=== PATIENT | male | born 1985 | race Caucasian/White ===

== ENCOUNTER 2017-03-18 03:44 | Emergency (ER) | payer SELFPAY ==
[2017-03-18] MEDS ORDERED: Ondansetron INJ* 2 MG/ML VIAL IV ONE (04:26)
[2017-03-18] MEDS ORDERED: HYDROmorphone* 1 MG/ML 1 ML SYR IV ONE (04:26)
[2017-03-18] MEDS ORDERED: NS 0.9% 1000 ML* 1,000 ML IV ONE (04:26)
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
[2017-03-18 04:56] VITALS: BP 125/78
[2017-03-18 04:59] LABS: Urine Bacteria 1+ (Absent); Urine Bilirubin Negative (Negative); Urine Glucose Negative (Negative); Urine Nitrite Negative (Negative)
== END 2017-03-18 04:57 | disposition short-term general hospital (02) ==
LOC: ED 03:44
DX: S09.90XA Unspecified injury of head, initial encounter (principal); S19.9XXA Unspecified injury of neck, initial encounter; S29.9XXA Unspecified injury of thorax, initial encounter; V29.9XXA Motorcycle rider (driver) (passenger) injured in unspecified traffic accident, initial encounter; Y92.9 Unspecified place or not applicable; F90.9 Attention-deficit hyperactivity disorder, unspecified type; Z88.2 Allergy status to sulfonamides; F17.210 Nicotine dependence, cigarettes, uncomplicated
CPT/HCPCS: 81003; 81015; 87086; 93005; 96360; 96374; 96375; 99285; J1170; J2405

== ENCOUNTER 2017-06-25 17:11 | Emergency (ER) | payer OTHER ==
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
--- NOTE | 2017-06-25 19:42 | RAD ---
INDICATION: Left shoulder injury COMPARISON: None TECHNIQUE: Routine frontal, Y and axial views were obtained. FINDINGS: The bony structures, joint spaces, and soft tissues are normal for age. IMPRESSION: NEGATIVE EXAMINATION.
[2017-06-25 20:44] VITALS: BP 121/73
== END 2017-06-25 20:42 | disposition home or self-care (01) ==
LOC: ED 17:11
DX: S49.92XA Unspecified injury of left shoulder and upper arm, initial encounter (principal); M25.512 Pain in left shoulder; V19.9XXA Pedal cyclist (driver) (passenger) injured in unspecified traffic accident, initial encounter; Y93.55 Activity, bike riding; Y92.9 Unspecified place or not applicable; Z72.0 Tobacco use
CPT/HCPCS: 99283

== ENCOUNTER 2018-03-02 21:58 | Emergency (ER) | payer OTHER ==
[2018-03-02] MEDS ORDERED: HYDROcodone/ACETAMIN 5-325 MG* 1 TAB PO ONE (22:48)
[2018-03-02] MEDS ORDERED: Acetaminophen TAB* 325 MG PO ONE (22:49)
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
[2018-03-03 01:19] VITALS: BP 121/78
--- NOTE | 2018-03-03 08:34 | RAD ---
Indication: LEFT foot and ankle pain without significant preceding injury. Comparison: No relevant prior exams available on the [facility] PACS for comparison. Technique: AP, mortise, and lateral views LEFT ankle. REPORT AND IMPRESSION: #. Moderate soft tissue swelling over the lateral malleolus. Chronic appearing accessory ossicle or old avulsion fragment inferior to the lateral malleolus. No acute fracture evident. Congruent ankle mortise. R0
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
--- NOTE | 2018-03-03 08:38 | RAD ---
Indication: LEFT foot and ankle pain without definitive preceding traumatic injury. Comparison: Ankle exam of the same date. Technique: AP and lateral views LEFT lower leg. REPORT AND IMPRESSION: #. Soft tissue swelling over the lateral malleolus. Negative for fracture or articular malalignment. R0
== END 2018-03-03 01:17 | disposition home or self-care (01) ==
LOC: ED 21:58
DX: S93.402A Sprain of unspecified ligament of left ankle, initial encounter (principal); V19.3XXA Pedal cyclist (driver) (passenger) injured in unspecified nontraffic accident, initial encounter; Y93.55 Activity, bike riding; Y92.9 Unspecified place or not applicable; Z88.2 Allergy status to sulfonamides; Z82.49 Family history of ischemic heart disease and other diseases of the circulatory system; F17.210 Nicotine dependence, cigarettes, uncomplicated
CPT/HCPCS: 36415; 80320; 99282; A9270-GY; G0480

== ENCOUNTER 2018-03-21 17:59 | Emergency (ER) | payer OTHER ==
--- NOTE | 2018-03-21 21:07 | ED ---
Laceration/Wound HPI - HPI Summary HPI Summary: 32 male presents ER with complaints of laceration to left first digit that he sustained just prior to arrival when attempting to cut down a tree branch. States he also knicked his thumb Patient states he was using a kitchen knife to cut down a branch when it slipped and fell and caught his finger. Bleeding is well-controlled. States tetanus was updated this past year. Denies any other injuries. - History of Current Complaint Stated Complaint: LT CUT FINGER AND THUMB Time Seen by Provider: 03/21/18 19:09 Hx Obtained From: Patient Mechanism of Injury: Sharp/Blunt Trauma - Kitchen knife Onset/Duration: Sudden Onset, Lasting Hours Aggravating: Movement Alleviating: Compression Timing: Constant Onset Severity: Moderate Current Severity: Moderate Pain Intensity: 7 Pain Scale Used: 0-10 Numeric Associated Signs & Symptoms: Negative Related Hx: Dominant Hand (Right) - Allergy/Home Medications Allergies/Adverse Reactions: Allergies Allergy/AdvReac Type Severity Reaction Status Date / Time MS Sulfa Drugs [Sulfa Drugs] Allergy Unknown Unknown Verified 03/21/18 18:31 Reaction Details PMH/Surg Hx/FS Hx/Imm Hx Endocrine/Hematology History: Denies: Hx Anticoagulant Therapy, Hx Blood Disorders Sensory History: Reports: Hx Contacts or Glasses Opthamlomology History: Reports: Hx Contacts or Glasses Psychiatric History: Reports: Hx Attention Deficit Hyperactivity Disorder Denies: Hx of Violent Episodes Against Others - Surgical History Surgery Procedure, Year, and Place: Right sided lymphectomy in the neck after a "staph" infection - Immunization History Date of Tetanus Vaccine: April 2017 Date of Influenza Vaccine: none Immunizations Up to Date: Yes Infectious Disease History: No Infectious Disease History: Denies: Hx Clostridium Difficile, Hx Hepatitis, Hx Human Immunodeficiency Virus (HIV), Hx of Known/Suspected MRSA, Hx Shingles, Hx Tuberculosis, Hx Known/ Suspected VRE, Hx Known/Suspected VRSA, History Other Infectious Disease, Traveled Outside the [place] in Last 30 Days - Family History Known Family History: Positive: Cardiac Disease, Hypertension - Social History Alcohol Use: Occasionally Hx Substance Use: Yes Substance Use Type: Reports: Marijuana Substance Use Comment - Amount & Last Used: hx of heroin and cocaine, marijuana 1 hr ago 1/2 gm Hx Tobacco Use: Yes Smoking Status (MU): Light Every Day Tobacco Smoker Type: Cigarettes Amount Used/How Often: 1/4 PPD Length of Time of Smoking/Using Tobacco: 20 years Have You Smoked in the Last Year: No Review of Systems Constitutional: Negative Cardiovascular: Negative Respiratory: Negative Musculoskeletal: Negative Positive: Other - laceration Neurological: Negative All Other Systems Reviewed And Are Negative: Yes Physical Exam Triage Information Reviewed: Yes Vital Signs On Initial Exam: Initial Vitals Temp Pulse Resp BP Pulse Ox 98.2 F 72 18 122/85 97 03/21/18 18:27 03/21/18 18:27 03/21/18 18:27 03/21/18 18:27 03/21/18 18:27 Vital Signs Reviewed: Yes Appearance: Positive: Well-Appearing, No Pain Distress, Well-Nourished Skin: Positive: Warm, Skin Color Reflects Adequate Perfusion, Dry, Other - 2 cm skin avulsion just under the PIP of the left first digit for range of motion and normal sensation. Bleeding controlled no foreign body superficial clean. Small superficial abrasion to the left medial thumb. No MSK involvement. Negative: Cold, Cyanosis @ Head/Face: Positive: Normal Head/Face Inspection Eyes: Positive: Conjunctiva Clear ENT: Positive: Hearing grossly normal Neck: Positive: Supple, Nontender Respiratory/Lung Sounds: Positive: Clear to Auscultation, Breath Sounds Present. Negative: Rales, Rhonchi, Wheezes Cardiovascular: Positive: Normal, RRR, Pulses are Symmetrical in both Upper and Lower Extremities. Negative: Murmur, Rub Bowel Sounds: Positive: Present Musculoskeletal: Positive: Normal, Strength/ROM Intact. Negative: Limited @, Interruption @, Pain @, Edema Left, Edema Right Neurological: Positive: Normal, Sensory/Motor Intact, Alert, Oriented to Person Place, Time, Reflexes Intact, NV Bundle Intact Distally, Normal Gait Procedures - Laceration/Wound Repair 1 Location: Other - left first digit Description: Linear Length, Depth and Shape: 2 cm skin avulsion/flap superficial Betadine Prep?: Yes Irrigated w/ Saline (ccs): 100 Laceration/Wound Explored: clean, no foreign body removed Closure: Skin Adhesive, SteriStrips - 3 Sterile Dressing Applied?: Yes - Telfa and tube gauze, left thumb abrasion triple antibiotic applied and Ban Diagnostics - Vital Signs Vital Signs Temp Pulse Resp BP Pulse Ox 03/21/18 19:26 97.7 F 59 18 127/60 100 03/21/18 18:27 98.2 F 72 18 122/85 97 - Laboratory Lab Statement: Any lab studies that have been ordered have been reviewed, and results considered in the medical decision making process. Laceration Repair Course/Dx - Course Course Of Treatment: Tetanus is up-to-date. Skin avulsion was repaired with skin adhesive and 3 Steri-Strips without complication. After thorough irrigation. Patient tolerated procedure well. Small abrasion was dressed with triple antibiotic and Band-Aid. Aware worsening signs and symptoms watch out for such as infection. Keep clean and dry for 48 hours. Apply triple antibiotic after skin adhesive and Steri-Strips fall off on their own. Instructed on proper care. Follow-up with primary care provider. No other concerns at this time. No MSK injury. - Differential Dx Differental Diagnoses: Abrasion, Avulsion, Laceration - Clinical Impression Provider Diagnoses: Avulsion of skin of finger Discharge - Sign-Out/Discharge Documenting (check all that apply): Patient Departure - Discharge Plan Condition: Good Disposition: HOME Patient Education Materials: Skin Avulsion (ED), Skin Adhesive Care (ED), Steristrips (ED) Referrals: No Primary Care Phys,NOPCP [Primary Care Provider] - [facility] [Outside] Additional Instructions: keep clean and dry for 48 hours do not remove dressing let glue and steri strip fall off on own, do not pick at or pull off. apply triple antibiotic ointment after steri strips and skin adhesive have fallen off keep covered for 60 hours, after you may uncover or cover, whichever is desired. any signs of infection (redness, swelling, discharge, pain) please seek medical attention as discussed. - Billing Disposition and Condition Condition: GOOD Disposition: Home
[2018-03-21 21:24] VITALS: BP 131/83
== END 2018-03-21 21:21 | disposition home or self-care (01) ==
LOC: ED 17:59
DX: S61.211A Laceration without foreign body of left index finger without damage to nail, initial encounter (principal); S60.312A Abrasion of left thumb, initial encounter; W26.0XXA Contact with knife, initial encounter; Y93.89 Activity, other specified; Y92.9 Unspecified place or not applicable; Z88.2 Allergy status to sulfonamides; Z82.49 Family history of ischemic heart disease and other diseases of the circulatory system; F17.210 Nicotine dependence, cigarettes, uncomplicated
CPT/HCPCS: 12001; 99282

== ENCOUNTER 2019-02-24 16:47 | Emergency (ER) | payer OTHER ==
--- OUTSIDE RECORDS SUMMARY | 2019-02-24 16:57 | XMS REPORT | Continuity of Care Document ---
:1985 External Reference #:[id number] Author Name Bob Pichardolevi Care Team Providers Name Role Phone Ivy Villalobos DO Primary Care Physician Unavailable Payers Date Identification Numbers Payment Provider Subscriber Policy Number: [id number] Yoel Pichardo PayID: [id number] [address] [place] [address] Problems Description No Active Problems Family History Date Family Member(s) Observation Comments General No Current Problems Social History Type Date Description Comments Sex Unknown Lives With Spouse Occupation Unemployed ETOH Use Drinks 5 Alcoholic Beverages Per Week Tobacco Use Start: Unknown Light tobacco smoker (10 or fewer cigarettes/day) Smoking Status Reviewed: 01/30/19 Light tobacco smoker (10 or fewer cigarettes/day) Exercise Type/Frequency Exercises regularly Allergies, Adverse Reactions, Alerts Active Allergies Reaction Severity Comments Date Sulfalene 01/22/2019 Medications Description No Active Medications Vital Signs Date Vital Result Comment 01/30/2019 9:31am Height 75 inches 6'3" Heart Rate 68 /min BP Systolic 118 mmHg BP Diastolic 78 mmHg Respiratory Rate 18 /min Body Temperature 98.0 F Pain Level 2 01/22/2019 10:43am Height 75 inches 6'3" Weight 215.00 lb Heart Rate 69 /min BP Systolic 120 mmHg BP Diastolic 82 mmHg Respiratory Rate 16 /min Body Temperature 98.2 F Pain Level 0 BMI (Body Mass Index) 26.9 kg/m2 Results Test Date Facility Test Result H/L Range Note Laboratory test 01/22/2019 [facility] SEE RESULT 1 , [address] [place] [address] [phone] 1 [id number] 2 SEE RESULT BELOW Name: STEPHANIE PICHARDO : [address]: Scott GARSIA Acct: [id number] Unit: [id number] AGE: 33 Location: [facility] Re01/22/19 SEX: M Status: REG REF SPEC: [id number] YISEL: 01/22/19- [facility] DR: Scott GARSIA REQ: [id number] RECD: 01/23/19 STATUS: SOUT _ ORDERED: LEVEL 4 COMMENTS: [id number] FINAL DIAGNOSIS Skin, left index finger, excision: -- Benign fibroepithelial polyp. CLINICAL HISTORY 6 months after laceration of right index finger PRE-OPERATIVE DIAGNOSIS Right index finger mass GROSS DESCRIPTION The specimen is received in formalin labeled, Left Index Finger, and consists of a 1.0 x 0.8 cm zamarripa-white unoriented volar skin ellipse excised to a depth of 0.3 cm with a central 1.0 x 0.9 x 0.8 cm zamarripa-white hairbearing polypoid nodule. The specimen is inked, trisected and submitted entirely in one cassette. Signed by and Reported on: Joni Tirado MD [address] DEPARTMENT OF PATHOLOGY, [address] [place] [address] Joni Tirado M.D. Director [facility] # [id number] Procedures Date Code Description Status 01/22/2019 56535 Excise Benign Lesion .6-1CM Completed Scalp/Neck/Hands/Feet/Genitalia Plan of Treatment 01/30/2019 - Jose Timmons, MDR22.32 Localized swelling, mass and lump, left upper limbFollow up:Follow up: As needed
--- NOTE | 2019-02-24 19:17 | ED ---
Lower Extremity - HPI Summary HPI Summary: Patient complains of right foot pain and abrasions to ankle after fall while dirt biking today. Denies any other pain injury or symptoms. - History of Current Complaint Chief Complaint: EDExtremityLower Stated Complaint: PAIN IN FOOT PER PT Time Seen by Provider: 02/24/19 17:40 Hx Obtained From: Patient Mechanism Of Injury: Other Onset of Pain: Immediate Onset/Duration: Hours Severity Initially: Moderate Severity Currently: Moderate Pain Intensity: 5 Pain Scale Used: 0-10 Numeric Timing: Constant Location: Is Discrete @ Character Of Pain: Aching, Throbbing Associated Signs And Symptoms: Positive: Swelling Aggravating Factor(s): Standing, Ambulation, Weight Bearing Alleviating Factor(s): Rest, Elevation Able to Bear Weight: Yes - Allergies/Home Medications Allergies/Adverse Reactions: Allergies Allergy/AdvReac Type Severity Reaction Status Date / Time Sulfa (Sulfonamide Allergy Unknown Verified 02/24/19 16:52 Antibiotics) Reaction Details PMH/Surg Hx/FS Hx/Imm Hx Endocrine/Hematology History: Denies: Hx Anticoagulant Therapy, Hx Blood Disorders Cardiovascular History: Denies: Hx Pacemaker/ICD History: Denies: Hx Dialysis Sensory History: Reports: Hx Contacts or Glasses Opthamlomology History: Reports: Hx Contacts or Glasses Neurological History: Denies: Hx Dementia Psychiatric History: Reports: Hx Attention Deficit Hyperactivity Disorder Denies: Hx of Violent Episodes Against Others - Surgical History Surgery Procedure, Year, and Place: Right sided lymphectomy in the neck after a "staph" infection - Immunization History Date of Tetanus Vaccine: April 2017 Date of Influenza Vaccine: none Infectious Disease History: No Infectious Disease History: Denies: Hx Clostridium Difficile, Hx Hepatitis, Hx Human Immunodeficiency Virus (HIV), Hx of Known/Suspected MRSA, Hx Shingles, Hx Tuberculosis, Hx Known/ Suspected VRE, Hx Known/Suspected VRSA, History Other Infectious Disease, Traveled Outside the [place] in Last 30 Days - Family History Known Family History: Positive: Cardiac Disease, Hypertension - Social History Alcohol Use: Occasionally Hx Substance Use: Yes Substance Use Type: Reports: Marijuana Substance Use Comment - Amount & Last Used: hx of heroin and cocaine, marijuana 1 hr ago 1/2 gm Hx Tobacco Use: Yes Smoking Status (MU): Light Every Day Tobacco Smoker Type: Cigarettes Amount Used/How Often: 1/4 PPD Length of Time of Smoking/Using Tobacco: 20 years Have You Smoked in the Last Year: No Review of Systems Constitutional: Negative Eyes: Negative ENT: Negative Cardiovascular: Negative Respiratory: Negative Gastrointestinal: Negative Genitourinary: Negative Musculoskeletal: Other Skin: Negative Neurological: Negative Psychological: Normal All Other Systems Reviewed And Are Negative: Yes Physical Exam - Summary Physical Exam Summary: Mild swelling to right foot. No ecchymosis, erythema, extra warmth, deformity noted. PMS intact distally. Calf soft nontender. Triage Information Reviewed: Yes Vital Signs On Initial Exam: Initial Vitals Temp Pulse Resp BP Pulse Ox 99.0 F 75 16 151/86 100 02/24/19 16:48 02/24/19 16:48 02/24/19 16:48 02/24/19 16:48 02/24/19 16:48 Vital Signs Reviewed: Yes Appearance: Positive: Well-Appearing Skin: Positive: Warm Head/Face: Positive: Normal Head/Face Inspection Eyes: Positive: Normal Dental: Negative: Dental Fracture @, Bleeding Neck: Positive: Supple Respiratory/Lung Sounds: Positive: Clear to Auscultation Cardiovascular: Positive: Normal Abdomen Description: Positive: Nontender Musculoskeletal: Positive: Normal Neurological: Positive: Normal Psychiatric: Positive: Normal AVPU Assessment: Alert - [place] Coma Scale Best Eye Response: 4 - Spontaneous Best Motor Response: 6 - Obeys Commands Best Verbal Response: 5 - Oriented Coma Scale Total: 15 Diagnostics - Vital Signs Vital Signs Temp Pulse Resp BP Pulse Ox 02/24/19 16:48 99.0 F 75 16 151/86 100 - Laboratory Lab Statement: Any lab studies that have been ordered have been reviewed, and results considered in the medical decision making process. Lower Extremity Course/Dx - Course Course Of Treatment: Patient complains of right foot pain and abrasions to ankle after fall while dirt biking today. Denies any other pain injury or symptoms. Vital signs within normal limits. X-rays negative. Patient provided with crutches to facilitate ambulation. - Diagnoses Provider Diagnoses: Right foot sprain Discharge - Sign-Out/Discharge Documenting (check all that apply): Patient Departure Patient Received Moderate/Deep Sedation with Procedure: No - Discharge Plan Condition: Stable Disposition: HOME Patient Education Materials: Foot Sprain (ED) Referrals: No Primary Care Phys,NOPCP [Primary Care Provider] - Yaya Marquez MD [Medical Doctor] - Additional Instructions: Use crutches to ambulate. Weightbearing as tolerated. Ice, ibuprofen and rest for right foot pain. If right foot pain persists more than 1 week follow-up with orthopedics Dr. Valentin for further evaluation. Return to the ED for any new or worsening symptoms. - Billing Disposition and Condition Condition: STABLE Disposition: Home
[2019-02-24 19:30] VITALS: BP 127/80
== END 2019-02-24 19:30 | disposition home or self-care (01) ==
LOC: ED 16:47
DX: S93.601A Unspecified sprain of right foot, initial encounter (principal); S90.511A Abrasion, right ankle, initial encounter; V86.56XA Driver of dirt bike or motor/cross bike injured in nontraffic accident, initial encounter; Y92.9 Unspecified place or not applicable; Z88.2 Allergy status to sulfonamides; F17.210 Nicotine dependence, cigarettes, uncomplicated
CPT/HCPCS: 99282

== ENCOUNTER 2019-04-21 05:58 | Emergency (ER) | payer BC, OTHER ==
[2019-04-21] MEDS ORDERED: Ondansetron INJ* 2 MG/ML VIAL IV ONE (06:09)
[2019-04-21] MEDS ORDERED: NS 0.9% 1000 ML** 1,000 ML IV ONE (06:09)
[2019-04-21] MEDS ORDERED: Methocarbamol* 100 MG/ML 10 ML VIAL IV ONE (06:22)
--- NOTE | 2019-04-21 07:55 | ED ---
Head Injury - HPI Summary HPI Summary: This patient is a 33-year-old male presenting to the ED with head injury. He states he was running through his yard, trying to turn the lights in his truck off, within a tree branch struck the front part of his head. He states immediately following he believes he had a loss of consciousness. He is unsure how long he had loss of consciousness. states he was immediately confused following getting up. He states he was going in and out of feeling nauseous so came to the ED. On arrival into the ED, the patient is endorsing nausea, vomiting, headache with no visual changes. He is also endorsing neck tenderness with tingling down bilateral arms. - History Of Current Complaint Chief Complaint: EDNeckComplaint Stated Complaint: FALL/NERVE PAIN PER PTS Time Seen by Provider: 04/21/19 06:06 Hx Obtained From: Patient Mechanism Of Injury: Direct Blow Onset/Duration: Started Hours Ago Onset of Pain: Hours Severity Currently: Mild Severity Initially: Mild Pain Intensity: 7 Pain Scale Used: 0-10 Numeric Location of Head Injury: Frontal Location: Discrete At: - frontal ORO Character: Throbbing Aggravating Factor(s): Movement Alleviating Factor(s): Rest Associated Signs And Symptoms: LOC (Time In Secs./Mins/Hrs) - unsure, Numbness - tingling to the bilateral arms - Allergies/Home Medications Allergies/Adverse Reactions: Allergies Allergy/AdvReac Type Severity Reaction Status Date / Time Sulfa (Sulfonamide Allergy Unknown Verified 02/24/19 16:52 Antibiotics) Reaction Details PMH/Surg Hx/FS Hx/Imm Hx Previously Healthy: Yes Endocrine/Hematology History: Denies: Hx Anticoagulant Therapy, Hx Blood Disorders Cardiovascular History: Denies: Hx Pacemaker/ICD History: Denies: Hx Dialysis Sensory History: Reports: Hx Contacts or Glasses Opthamlomology History: Reports: Hx Contacts or Glasses Neurological History: Denies: Hx Dementia Psychiatric History: Reports: Hx Attention Deficit Hyperactivity Disorder Denies: Hx of Violent Episodes Against Others - Surgical History Surgery Procedure, Year, and Place: Right sided lymphectomy in the neck after a "staph" infection - Immunization History Date of Tetanus Vaccine: April 2017 Date of Influenza Vaccine: none Hx Pertussis Vaccination: No Immunizations Up to Date: Yes Infectious Disease History: No Infectious Disease History: Denies: Hx Clostridium Difficile, Hx Hepatitis, Hx Human Immunodeficiency Virus (HIV), Hx of Known/Suspected MRSA, Hx Shingles, Hx Tuberculosis, Hx Known/ Suspected VRE, Hx Known/Suspected VRSA, History Other Infectious Disease, Traveled Outside the [place] in Last 30 Days - Family History Known Family History: Positive: Cardiac Disease, Hypertension - Social History Occupation: Employed Full-time Lives: With Family Alcohol Use: Occasionally Hx Substance Use: Yes Substance Use Type: Reports: Marijuana Substance Use Comment - Amount & Last Used: hx of heroin and cocaine, marijuana 1 hr ago 1/2 gm Hx Tobacco Use: Yes Smoking Status (MU): Light Every Day Tobacco Smoker Type: Cigarettes Amount Used/How Often: 1/4 PPD Length of Time of Smoking/Using Tobacco: 20 years Have You Smoked in the Last Year: No Review of Systems Negative: Fever, Chills, Fatigue, Skin Diaphoresis Negative: Blurred Vision Negative: Palpitations, Chest Pain Negative: Shortness Of Breath, Cough Positive: Arthralgia - posterior neck tenderness Positive: Paresthesia, Numbness Psychological: Normal All Other Systems Reviewed And Are Negative: Yes Physical Exam Triage Information Reviewed: Yes Vital Signs On Initial Exam: Initial Vitals Temp Pulse Resp BP Pulse Ox 97.4 F 88 18 122/85 99 04/21/19 05:59 04/21/19 05:59 04/21/19 05:59 04/21/19 05:59 04/21/19 05:59 Vital Signs Reviewed: Yes Appearance: Positive: Ill-Appearing - diaphoretic on arrival Skin: Positive: Diaphoretic Head/Face: Positive: Other - frontal hematoma over forehead Neck: Positive: Supple, No Lymphadenopathy Respiratory/Lung Sounds: Positive: Clear to Auscultation, Breath Sounds Present Cardiovascular: Positive: Pulses are Symmetrical in both Upper and Lower Extremities Musculoskeletal: Positive: Strength/ROM Intact Neurological: Positive: Speech Normal Psychiatric: Positive: Affect/Mood Appropriate Diagnostics - Vital Signs Vital Signs Temp Pulse Resp BP Pulse Ox 04/21/19 06:19 74 96 04/21/19 06:18 73 125/77 96 04/21/19 05:59 97.4 F 88 18 122/85 99 - Laboratory Lab Statement: Any lab studies that have been ordered have been reviewed, and results considered in the medical decision making process. Head Injury Course/Dx Course Of Treatment: During his course treatment, the patient's evaluated for head injury, neck pain and bilateral tingling in the arms. On arrival in the ED , the patient is nauseous and actively vomiting. He is extremely diaphoretic. Immediately he was placed on a stretcher, given IV of fluids as well as Zofran and Robaxin. He states this improved his symptoms. A CT brain and cervical spine are obtained which showed no acute findings. However there is bony impingement on C3/C4. This is likely old. On reexamination, patient states his symptoms have improved and he denies any nausea or vomiting at this time. On physical examination, patient appears well, able to rotate about the neck, flex and extend. Flexion, extension, abduction and adduction of the upper extremities without discomfort. Patient is alert and oriented. at bedside. He will be given prescription for Robaxin and will follow up with his PCP. - Diagnoses Differential Diagnosis/HQI/PQRI: Other - cervical strain, cervical fracture, paresthesia, head injury, concussion Provider Diagnoses: Head injury, Paresthesia Discharge ED - Sign-Out/Discharge Documenting (check all that apply): Patient Departure Patient Received Moderate/Deep Sedation with Procedure: No - Discharge Plan Condition: Stable Disposition: HOME Prescriptions: Methocarbamol TAB* [Robaxin 500 MG TAB*] 500 mg PO QID PRN #12 tab MDD 4 PRN Reason: Spasms Patient Education Materials: Cervical Strain (ED), Concussion (ED) Referrals: No Primary Care Phys,NOPCP [Primary Care Provider] - Additional Instructions: I have given you information on concussions/concussive like symptoms Brain rest for the next few days, especially if you are having headaches or sensitivity to the light If you are not feeling well after a few days, you will need to see your primary for close follow up Methocarbamol up to four times daily for muscle relaxation/spasms Tylenol and ibuprofen intermittently every 3 hours for discomfort Moist heat to the area as much as possible - Billing Disposition and Condition Condition: STABLE Disposition: Home
[2019-04-21 07:57] VITALS: BP 122/80
== END 2019-04-21 07:54 | disposition home or self-care (01) ==
LOC: ED 05:58
DX: S09.90XA Unspecified injury of head, initial encounter (principal); R20.2 Paresthesia of skin; W22.09XA Striking against other stationary object, initial encounter; Y92.007 Garden or yard of unspecified non-institutional (private) residence as the place of occurrence of the external cause; F90.9 Attention-deficit hyperactivity disorder, unspecified type; F17.210 Nicotine dependence, cigarettes, uncomplicated; Z79.899 Other long term (current) drug therapy; Z88.2 Allergy status to sulfonamides
CPT/HCPCS: 70450; 72125; 96361; 96374; 96375; 99282; J2405; J2800